=== PATIENT | male | born 1930 | race Caucasian/White ===

== ENCOUNTER → 2019-06-01 | Outpatient (CLI) | payer MEDICARE ==
[2019-06-01 12:44] LABS: ALANINE AMINOTRANSFERASE 18 U/L (12-78); ANION GAP 4 mmol/L (5-15); CALCIUM 9.1 mg/dL (8.5-10.1); CHLORIDE 106 mmol/L (98-107); CREATININE 1.03 mg/dL (0.7-1.3)
[2019-06-01 12:47] LABS: ALKALINE PHOSPHATASE 87 U/L (45-117); BILIRUBIN,TOTAL 1.4 mg/dL (0.2-1.0); TOTAL PROTEIN 7.7 g/dL (6.4-8.2)
== END | disposition home or self-care (01) ==
LOC: CFH 10:32
PROVIDERS: ATTEND Nurse Practitioner
DX: I10 Essential (primary) hypertension (principal)
CPT/HCPCS: 36415; 80053

== ENCOUNTER 2020-04-28 09:16 | Observation (INO) | payer MEDICARE ==
[~2020-04-28] VITALS: Ht 172.7 cm; Wt 83.6 kg
[2020-04-28 09:53] LABS: BASOPHILS % (AUTO) 0 % (0-1); EOSINOPHILS % (AUTO) 0 % (1-7); LYMPHOCYTES % (AUTO) 6 % (22-44); MEAN CORPUSCULAR HEMOGLOBIN 31.5 pg (27.5-34.5); MEAN CORPUSCULAR HGB CONC 34.9 g/dL (33.2-36.2); MEAN PLATELET VOLUME 6.9 fL (7.4-10.4); MONOCYTES % (AUTO) 4 % (2-9); NEUTROPHILS % (AUTO) 90 % (42-75); PLATELET COUNT 210 x10^3/uL (130-400); RED BLOOD COUNT 4.75 x10^6/uL (4.38-5.82); RED CELL DISTRIBUTION WIDTH 13.7 % (9.4-14.8)
--- NOTE | 2020-04-28 09:57 | NUR ---
PT TO CT
[2020-04-28 10:00] LABS: MD NO
[2020-04-28 10:03] LABS: ALBUMIN 3.9 g/dL (3.4-5.0); ANION GAP 5 mmol/L (5-15); CALCIUM 9.1 mg/dL (8.5-10.1); CHLORIDE 105 mmol/L (98-107)
[2020-04-28 10:09] LABS: CREATININE 1.16 mg/dL (0.7-1.3); TROPONIN I < 0.015 ng/mL (0.000-0.045)
[2020-04-28] MEDS ORDERED: SODIUM CHLORIDE FLUSH 10ML SYR IVF ONE (10:30)
[2020-04-28] MEDS ORDERED: SODIUM CHLORIDE 0.9% 1,000ML IVBOLUS ONE (11:00)
[2020-04-28 11:54] VITALS: BP 132/82
[2020-04-28] MEDS ORDERED: KETOROLAC 30 MG/1 ML IV PRN (13:00)
[2020-04-28] MEDS ORDERED: ONDANSETRON 2MG/ML, 2ML IVPush PRN (13:00)
[2020-04-28] MEDS ORDERED: hydrALAzine 20 MG/ML, 1ML IVPush PRN (13:00)
[2020-04-28] MEDS ORDERED: DOCUSATE 100 MG CAPSULE PO PRN (13:00)
[2020-04-28] MEDS ORDERED: LIDODERM 5% PATCH TD PRN (13:00)
[2020-04-28 13:37] LABS: FREE T4 (FREE THYROXINE) 1.41 ng/dL (0.76-1.46)
[2020-04-28 13:45] VITALS: BP 176/84
[2020-04-28 15:23] LABS: MICROSCOPIC NOT IND
[2020-04-28] MEDS: SODIUM CHLORIDE NASAL SPRAY 45ML BOTTLE NAS PRN (21:30)
[2020-04-28 21:56] VITALS: BP_SYST 147; BP_SYST 165; BP_SYST 167; BP_DIAS 69; BP_DIAS 70; BP_DIAS 86
[2020-04-29 00:10] VITALS: BP 122/71
[2020-04-29] MEDS ORDERED: LIDODERM REMOVE PATCH NOTE XX SCH (03:15)
[2020-04-29 06:02] LABS: BASOPHILS % (AUTO) 1 % (0-1); EOSINOPHILS % (AUTO) 1 % (1-7); LYMPHOCYTES % (AUTO) 16 % (22-44); MEAN CORPUSCULAR HEMOGLOBIN 31.1 pg (27.5-34.5); MEAN CORPUSCULAR HGB CONC 34.3 g/dL (33.2-36.2); MEAN PLATELET VOLUME 7.3 fL (7.4-10.4); MONOCYTES % (AUTO) 8 % (2-9); NEUTROPHILS % (AUTO) 75 % (42-75); PLATELET COUNT 187 x10^3/uL (130-400); RED CELL DISTRIBUTION WIDTH 13.9 % (9.4-14.8)
[2020-04-29 06:09] LABS: ANION GAP 3 mmol/L (5-15); CALCIUM 8.7 mg/dL (8.5-10.1); CHLORIDE 107 mmol/L (98-107); CREATININE 0.85 mg/dL (0.7-1.3)
[2020-04-29 06:12] LABS: MD NO
[2020-04-29 07:20] VITALS: BP 161/81
[2020-04-29] MEDS: ACETAMINOPHEN 325 MG TABLET PO PRN ×2 (09:23→15:01)
[2020-04-29] MEDS: SODIUM CHLORIDE NASAL SPRAY 45ML BOTTLE NAS PRN (09:24)
[2020-04-29] MEDS ORDERED: AMLODIPINE 5 MG TABLET PO SCH (09:30)
[2020-04-29] MEDS ORDERED: LISINOPRIL 5 MG TABLET PO SCH (09:30)
[2020-04-29] MEDS ORDERED: AMLO5TAB4 PO (10:10)
[2020-04-29 13:52] VITALS: BP 136/89
[2020-04-29] MEDS ORDERED: LIDO700A20 TD (16:55)
[2020-04-29] MEDS ORDERED: TRAM50TA2 PO (16:55)
[2020-04-29] MEDS ORDERED: OXYC5TAB98 PO (17:27)
== END 2020-04-29 18:52 | disposition home or self-care (01) ==
LOC: ED 10:17 → INTOOBSV 11:21 → EDIP 11:21 → 5SO 11:40
PROVIDERS: ADMIT Family Medicine; ATTEND Family Medicine
DX: R55 Syncope and collapse (principal); G90.9 Disorder of the autonomic nervous system, unspecified; S22.32XA Fracture of one rib, left side, initial encounter for closed fracture; I10 Essential (primary) hypertension; E78.5 Hyperlipidemia, unspecified; M81.0 Age-related osteoporosis without current pathological fracture; G47.33 Obstructive sleep apnea (adult) (pediatric); I25.10 Atherosclerotic heart disease of native coronary artery without angina pectoris; J98.11 Atelectasis; Z85.21 Personal history of malignant neoplasm of larynx; Z85.46 Personal history of malignant neoplasm of prostate; Z66 Do not resuscitate; Z88.0 Allergy status to penicillin; Z79.899 Other long term (current) drug therapy; Z90.79 Acquired absence of other genital organ(s)
CPT/HCPCS: 36415; 70450; 71250; 80048; 81003; 82040; 83735; 83880; 84100; 84153; 84439; 84443; 84484; 85025; 93005; 93308; 93321; 93325; 96374; 99285; G0378; J0360; J7030; G0103

== ENCOUNTER → 2020-08-15 | Outpatient (CLI) | payer MEDICARE ==
[~2020-08-15] MED LIST: AMLO5TAB4 PO; LIDO700A20 TD; OXYC5TAB98 PO; TRAM50TA2 PO
== END | disposition home or self-care (01) ==
LOC: CFH 13:04
PROVIDERS: ATTEND Internal Medicine
DX: R91.8 Other nonspecific abnormal finding of lung field (principal); J84.10 Pulmonary fibrosis, unspecified
CPT/HCPCS: 71250